=== PATIENT | female | born 1980 ===

== ENCOUNTER → 2018-02-06 | Outpatient (CLI) | payer BC | LOC: FIMAGING 07:24 | PROVIDERS: ATTEND Obstetrics & Gynecology | DX: O44.02 Complete placenta previa NOS or without hemorrhage, second trimester (principal); O09.512 Supervision of elderly primigravida, second trimester; Z3A.27 27 weeks gestation of pregnancy ==

== ENCOUNTER → 2018-03-20 | Outpatient (CLI) | payer BC | LOC: FIMAGING 08:51 | PROVIDERS: ATTEND Obstetrics & Gynecology | DX: O09.523 Supervision of elderly multigravida, third trimester (principal); O44.02 Complete placenta previa NOS or without hemorrhage, second trimester; Z3A.33 33 weeks gestation of pregnancy ==